=== PATIENT | female | born 1930 | race Caucasian/White ===

== ENCOUNTER 2018-01-30 07:27 | Day surgery (SDC) | payer MEDICARE, OTHER ==
[~2018-01-30 07:27] MED LIST: Polymyxin B/Trimethoprim 10 ML Bottle EYERT SCH
--- NOTE | 2018-01-30 07:54 | PCM.PREANE ---
Preanesthetic Assessment - Anesthesia/Transfusion/Family Hx Anesthesia History: Prior Anesthesia Without Reaction Family History of Anesthesia Reaction: No Transfusion History: No Prior Transfusion(s) - Review of Systems General: No Symptoms Pulmonary: No Symptoms Cardiovascular: No Symptoms Gastrointestinal: Other (reflux with certain foods) Neurological: Numbness (in hands at times) Other: Reports: Easy Bruising - Physical Assessment NPO Status Date: 01/29/18 NPO Status Time: 20:00 Pulse: 68 O2 Sat by Pulse Oximetry: 94 Respiratory Rate: 14 Blood Pressure: 146/77 Weight: 68.946 kg ASA Class: 2 Mental Status: Alert & Oriented x3 Airway Class: Mallampati = 2 Dentition: Reports: Normal Dentition Thyro-Mental Finger Breadths: 3 Mouth Opening Finger Breadths: 3 ROM/Head Extension: Full Lungs: Clear to Auscultation, Normal Respiratory Effort Cardiovascular: Regular Rate, Regular Rhythm - Allergies Allergies/Adverse Reactions: Allergies Allergy/AdvReac Type Severity Reaction Status Date / Time alendronate sodium Allergy Cannot Verified 01/29/18 12:27 [From Fosamax] Remember - Blood Blood Available: No Product(s) Available: None - Anesthesia Plan Pre-Op Medication Ordered: None - Acknowledgements Anesthesia Type Planned: MAC Pt an Appropriate Candidate for the Planned Anesthesia: Yes Alternatives and Risks of Anesthesia Discussed w Pt/Guardian: Yes Pt/Guardian Understands and Agrees with Anesthesia Plan: Yes PreAnesthesia Questionnaire Other Genitourinary History: prolapsed bladder - HOME MEDS Home Medications: Home Meds Ascorbate Calcium [Vitamin C] 500 mg PO DAILY 01/29/18 [History] Vit A/Vit C/Vit E/Zinc/Copper [Preservision Areds Softgel] 1 cap PO DAILY [History] - CURRENT (IN HOUSE) MEDS Current Meds: Current Medications Brimonidine Tartrate (Alphagan 0.2% Ophth Soln) 0 ml EYERT ASDIRECTED [facility] Stop: 01/30/18 18:00 Cefuroxime Sodium (Zinacef) 0 mg EYERT ASDIRECTED [facility] Stop: 01/30/18 18:00 Lidocaine HCl (Xylocaine-Mpf 1%) 1 ml INJECT ASDIRECTED [facility] Stop: 01/30/18 18:00 Phenylephrine HCl (Rancho-Synephrine 2.5% Ophth Soln) 0 ml EYERT ASDIRECTED [facility] Stop: 01/30/18 18:00 Pilocarpine HCl (Pilocar 4% Ophth Soln) 0 ml EYERT ASDIRECTED [facility] Stop: 01/30/18 18:00 Polymyxin/Trimethoprim Sulfate (Polytrim Ophth Soln) 0 ml EYERT ASDIRECTED [facility] Stop: 01/30/18 18:00 Tetracaine HCl (Tetracaine 0.5% Steri-Unit [place]) 0 ml EYERT ASDIRECTED [facility] Stop: 01/30/18 18:00 Tropicamide (Mydriacyl 1% Ophth Soln) 0 ml EYERT ASDIRECTED [facility] Stop: 01/30/18 18:00
[2018-01-30] MEDS: Brimonidine 0.2% Ophth Soln 5 ML Bottle EYERT SCH ×4 (08:03→09:41)
[2018-01-30] MEDS: Phenylephrine 2.5% Ophth Soln 2 ML Bot EYERT SCH ×7 (08:06→09:11)
[2018-01-30] MEDS: Tropicamide 1% Ophth Soln 15 ML Bottle EYERT SCH ×4 (08:11→08:49)
[2018-01-30] MEDS: Tetracaine HCl/PF 0.5% 4 ML Bottle EYERT SCH ×3 (08:58→09:23)
[2018-01-30] MEDS: Cefuroxime 10 MG/ML SYRINGE EYERT SCH ×2 (09:02→09:37)
[2018-01-30] MEDS: Pilocarpine 4% Ophth Soln 15 ML Bot EYERT SCH ×2 (09:02→09:41)
[2018-01-30] MEDS: Lidocaine 1% PF 2 ML SDV INJECT SCH ×2 (09:02→09:23)
[2018-01-30] MEDS ORDERED: Mupirocin Oint 22 GM Tube ONE (09:10)
[2018-01-30] MEDS ORDERED: Lidocaine 1% with EPINEPHrine 1:100,000 20 ML MDV ONE (09:10)
[2018-01-30] MEDS: Erythromycin Base 0.5% Ophth Oint 1 GM Tube ONE ×2 (09:38→09:39)
--- NOTE | 2018-01-30 09:47 | PCM48HPAN ---
Post Anesthesia Note - EVALUATION WITHIN 48HRS OF ANESTHETIC Vital Signs in Normal Range: Yes Patient Participated in Evaluation: Yes Respiratory Function Stable: Yes Airway Patent: Yes Cardiovascular Function Stable: Yes Hydration Status Stable: Yes Pain Control Satisfactory: Yes Nausea and Vomiting Control Satisfactory: Yes Mental Status Recovered: Yes Pulse Rate: 75 SaO2: 96 Resp Rate: 26 Temperature: 36 C Blood Pressure: 150/96
[2018-01-30 10:35] VITALS: BP 143/85
== END 2018-01-30 10:05 | disposition home or self-care (01) ==
LOC: JD.SDS 07:27
PROVIDERS: ATTEND Ophthalmology
DX: H25.813 Combined forms of age-related cataract, bilateral (principal); H02.844 Edema of left upper eyelid; D48.5 Neoplasm of uncertain behavior of skin; H35.3132 Nonexudative age-related macular degeneration, bilateral, intermediate dry stage; H35.363 Drusen (degenerative) of macula, bilateral; H16.223 Keratoconjunctivitis sicca, not specified as Sjogren's, bilateral; H16.103 Unspecified superficial keratitis, bilateral; Z79.899 Other long term (current) drug therapy; Z88.8 Allergy status to other drugs, medicaments and biological substances; Z83.518 Family history of other specified eye disorder
CPT/HCPCS: 66984; 93005; A9270; C1780; J0697; J2001